=== PATIENT | male | born 1990 | race Caucasian/White ===

== ENCOUNTER 2018-10-28 16:06 | Emergency (ER) | payer BC ==
[~2018-10-28] VITALS: Ht 172.7 cm; Wt 61.0 kg
[2018-10-28 23:52] VITALS: BP 116/60
== END 2018-10-28 23:58 | disposition home or self-care (01) ==
LOC: ER 16:06
DX: K64.4 Residual hemorrhoidal skin tags (principal); F41.9 Anxiety disorder, unspecified
CPT/HCPCS: 99283